=== PATIENT | male | born 1970 | race Caucasian/White ===

== ENCOUNTER 2021-07-14 20:30 | Emergency (ER) | payer BC | END 2021-07-14 23:50 | disposition home or self-care (01) | LOC: ER1 20:30 | DX: J02.9 Acute pharyngitis, unspecified (principal); Z20.822 Contact with and (suspected) exposure to COVID-19; F17.220 Nicotine dependence, chewing tobacco, uncomplicated | CPT/HCPCS: 87081; 87880; 99283; U0002 ==

== ENCOUNTER → 2022-06-14 | Day surgery (SDC) | payer MEDICARE ==
[~2022-06-14] MED LIST: ATORVASTATIN CA40 MG PO; MELOXICAM15 MG PO
== END | disposition home or self-care (01) ==
LOC: OR 07:29
DX: Z12.11 Encounter for screening for malignant neoplasm of colon (principal); D12.0 Benign neoplasm of cecum; D12.3 Benign neoplasm of transverse colon; K57.30 Diverticulosis of large intestine without perforation or abscess without bleeding; N40.0 Benign prostatic hyperplasia without lower urinary tract symptoms; I10 Essential (primary) hypertension; E78.5 Hyperlipidemia, unspecified; E66.01 Morbid (severe) obesity due to excess calories
CPT/HCPCS: J2001; J2704; J7040